=== PATIENT | male | born 1955 | race Caucasian/White ===

== ENCOUNTER 2021-11-21 11:46 | Emergency (ER) | payer OTHER, SELFPAY ==
--- NOTE | ~2021-11-21 | XR_ITS ---
[id number] DATE: 11/21/2021 12:18 INDICATION: Fall. Left mid rib pain. History of COPD. TECHNIQUE: PA chest. 4 views of the left ribs. COMPARISON: 03/10/2012 portable AP chest FINDINGS: There is diffuse osteopenia. There is old fracture deformity of the lateral shaft of left clavicle. There is mild degenerative laith nge at the left acromioclavicular joint. There is severe osteoarthritis at the left glenohumeral join t. There are degenerative changes of the cervical and thoracic spine. There is old healed fracture deformity of the posterolateral aspect of the left fifth rib. No recent left rib fracture is detected. Borderline heart size. Heart size is not optimally evaluated on AP projection because of magnificatio n. There is pulmonary vascular redistribution which may indicate mild pulmonary venous hypertension. Mild patchy infiltrate or atelectasis is suggested in both lower lungs. No pleural effusion or pneumo thorax is evident. IMPRESSION: No recent left rib fracture is detected Mild infiltrate or atelectasis is suggested in the lower lungs Borderline heart size. Pulmonary vascular redistribution suggests mild pulmonary venous hypertension. Reviewed, dictated and finalized at [facility]. Reviewed, dictated and finalized at location A. TICAL ANTHROPOLOGIST IMPRESSION: No recent left rib fracture is detected Mild infiltrate or atelectasis is suggested in the lower lungs Borderline heart size. Pulmonary vascular redistribution suggests mild pulmonar y venous hypertension.
--- NOTE | 2021-11-21 11:54 | ED.GENADULT ---
HPI - General Adult General Chief complaint: Chest Pain Stated complaint: Left side rib injury Time Seen by Provider: 11/21/21 11:54 Source: patient and RN notes reviewed History of Present Illness HPI narrative: Patient is a 66-year-old male who presents the urgent care with complaints of right-sided rib pain after a fall on November 12. Patient states he has been taking ibuprofen every 12 hours without any relief. Patient states that he has had chills and sweats from the pain. States that he did go to [facility] initially and he did have a negative x-ray. Patient states he is now having increased pain with deep breathing. Denies of any fevers. No other acute complaints. No acute distress noted. Patient read the plan of care. Some parts of this dictation were generated by voice recognition software and may contain typographical and/or grammatical inaccuracies. Related Data Home Medications Medication Instructions Recorded Confirmed cholecalciferol (vitamin D3) 1,250 1,250 mcg PO MONTHLY 08/10/20 11/21/21 mcg (50,000 unit) capsule vitamin B complex 1 tablet PO DAILY 08/10/20 11/21/21 methotrexate 2.5 mg/mL oral See Rx Instructions PO .COMPLEX 08/16/21 11/21/21 solution Allergies Allergy/AdvReac Type Severity Reaction Status Date / Time No Known Allergies Allergy Verified 11/21/21 11:59 Review of Systems Review of Systems: CONSTITUTIONAL: Denies fever, chills, or sweats. EYES: Denies visual changes, redness, or discharge. ENT: Denies rhinorrhea, congestion, sore throat, or otalgia. CARDIOVASCULAR: Denies chest pain, palpitations, or edema. RESPIRATORY: Reports of pain with deep breathing and intermittent dyspnea with anterior left rib pain GASTROINTESTINAL: Denies abdominal pain, nausea, vomiting, or diarrhea. GENITOURINARY: Denies dysuria or hematuria. SKIN: Denies rash or itching. MUSCULOSKELETAL: Denies back pain, joint pain, or myalgia. NEUROLOGIC: Denies headache, numbness, or weakness. All other systems reviewed are negative, except as documented in HPI. [facility] Past Medical History Medical History Pericardial effusion Surgical History Surgical History (Updated 08/16/21 @ 08:58 by Suzi Hendrickson CMA) History of bilateral knee replacement Family History Family History (Updated 02/09/18 @ 16:15 by DOCTOR UNKNOWN) Other Family history of cardiovascular disease Social History Social History Smoking status: Former smoker Smoking end date: 11/16/02 Alcohol intake: current Comments At the time of my signature, I reviewed and agree with the nursing past medical, surgical, social, and family history. There is no relevant family history pertinent to the patient complaint. Exam Narrative: GENERAL: This is a well-nourished, well-developed patient, in no apparent distress. HEAD: normocephalic, atraumatic. EYES: PERRL. Sclera clear/white. Vision is grossly intact. EARS: External ears normal NOSE: External nose normal with no obvious nasal discharge, nares without redness, no rhinorrhea. THROAT: Mucous membranes moist NECK: Neck supple CARDIOVASCULAR: Regular rate and rhythm without murmurs, gallops, or rubs. RESPIRATORY: Clear to auscultation. Diminished bibasilar SKIN: warm, intact with no suspicious lesions or rash, good texture and turgor. NEURO: awake, alert, and oriented to person, place and time. There were no obvious focal neurologic abnormalities. EXTREMITIES: No clubbing, cyanosis, or edema. Course Course Level of Care: Express Care Visit Vital Signs Vital signs: Vital Signs Temperature 98.1 F 11/21/21 12:02 Pulse Rate 82 11/21/21 12:02 Respiratory Rate 20 11/21/21 12:02 Blood Pressure 160/84 H 11/21/21 12:02 Pulse Oximetry 96 11/21/21 12:02 Temperature 98.1 F 11/21/21 12:02 Pulse Rate 82 11/21/21 12:02 Respiratory Rate 20 11/21/21 12:02 Blood Pressure 160/84 H 01/0
[2021-11-21 12:02] VITALS: BP 160/84; PULSE 82; RESP 20; TEMP 36.7; O2SAT 96
== END 2021-11-21 12:43 | disposition home or self-care (01) ==
PROVIDERS: Emergency Provider Nurse Practitioner Family; PCP Family Medicine
DX: R91.8 Other nonspecific abnormal finding of lung field (principal); Z96.653 Presence of artificial knee joint, bilateral; Z86.711 Personal history of pulmonary embolism; Z87.891 Personal history of nicotine dependence
CPT/HCPCS: 71101; 99213; G0463

== ENCOUNTER 2023-07-23 12:30 | Outpatient (CLI) | payer MEDICARE, OTHER, SELFPAY ==
[2023-07-23 18:38] LABS: Basophils Absolute Auto 0.1 K/mm3 (0.0-0.1); Eosinophils Absolute Auto 0.4 K/mm3 (0-0.3); Hematocrit 42.9 % (42.0-52.0); Hemoglobin 13.5 g/dL (14.0-18.0); Immature Granulocyte Absolute 0.01 K/mm3 (0.00-0.031); Immature Granulocyte Percent A 0.2 % (0-0.5); Lymphocytes Absolute Auto 1.66 K/mm3 (0.9-3.2); Lymphocytes Percent Auto 27.2 % (18.3-44.2); Mean Corpuscular HGB Conc 31.5 g/dl (32-36); Mean Corpuscular Hemoglobin 31.1 pg (26-34); Mean Corpuscular Volume 98.8 fl (80-100); Mean Platelet Volume 10.9 fl (7.4-10.4); Monocytes Absolute Auto 0.8 K/mm3 (0.1-0.6); Monocytes Percent Auto 12.6 % (2.6-8.5); Neutrophils Absolute Auto 3.2 K/mm3 (1.3-6.7); Platelet Count Result 295 k/mm3 (150-375); Red Blood Count 4.34 M/mm3 (4.6-6.20); Red Cell Distribution Width 14.9 % (11.5-14.5); White Blood Count 6.1 K/mm3 (4.5-10.0)
[2023-07-23 19:57] LABS: LDL Cholesterol Direct 79 mg/dL
[2023-07-23 20:06] LABS: Alanine Aminotransferase 38 U/L (6-50); Alkaline Phosphatase 209 U/L (38-126); Aspartate Amino Transferase 45 U/L (17-59); Blood Urea Nitrogen 17 mg/dL (9-20); Calcium 9.4 mg/dL (8.4-10.2); Carbon Dioxide 34 mmol/L (22-30); Cholesterol 179 mg/dL (0-200); Estimated Glomerular Filt Rate > 60; Glucose 96 mg/dL (65-110); HDL Direct 54 mg/dL; Potassium 4.6 mmol/L (3.4-5.0); Prostate Specific Antigen 0.8 ng/mL (< OR = 4.0); Sodium 140 mmol/L (137-145); Triglycerides 93 mg/dL (<150)
[2023-07-23 20:23] LABS: Vitamin D 25 Hydroxy 24.7 ng/mL
[2023-07-23 21:12] LABS: Hemoglobin A1C 5.7 % (<5.7)
[2023-07-23 21:32] LABS: Anion Gap 4 mmol/L (8-16); Chloride 102 mmol/L (98-107)
== END 2023-07-23 12:31 | disposition home or self-care (01) ==
PROVIDERS: PCP Family Medicine; Visit Provider Family Medicine
DX: E78.5 Hyperlipidemia, unspecified (principal); E55.9 Vitamin D deficiency, unspecified; R73.9 Hyperglycemia, unspecified; M06.9 Rheumatoid arthritis, unspecified; I10 Essential (primary) hypertension; Z79.899 Other long term (current) drug therapy; E53.8 Deficiency of other specified B group vitamins; Z12.5 Encounter for screening for malignant neoplasm of prostate
CPT/HCPCS: 36415; 80053; 80061; 82306; 82607; 83036; 84153; 84443; 85025; G0103

== ENCOUNTER 2023-07-23 15:03 | Inpatient (IN) | payer MEDICARE, OTHER, SELFPAY ==
[2023-07-23] VITALS (25 sets, daily range): BP systolic 106–169; BP diastolic 51–101; PULSE 80–95; RESP 14–24; TEMP 36.6–36.8; O2SAT 89–95; BMI 55.4
--- NOTE | ~2023-07-23 | CT_ITS ---
EXAMINATION: CT abdomen pelvis wo con DATE: 07/25/2023 08:34 INDICATION: R Testicular swelling, unable to view on US TECHNIQUE: Computed tomography (CT) of the abdomen and pelvis was performed without intravenous contr ast. Automated exposure control and iterative reconstruction technique were employed. The dose-length product was 2712.48 mGy-cm. COMPARISON: None. FINDINGS: Lower thorax: Cardiomegaly. Aortic and mitral calcification. Liver: Normal. Biliary/Gallbladder: Gallbladder is normal. No bile duct dilation. Pancreas: No mass or duct dilation. Spleen: Absent spleen, with splenosis. Adrenals:No mass. Kidneys: No mass, stone, or hydronephrosis. GI tract: The rectum is dilated to 9.0 cm by formed stool, without surrounding wall thickening or inf lammatory change No small bowel dilation. Appendix not visualized. Mesentery/Peritoneum: No ascites, mass, or free air. Retroperitoneum: No mass. Pelvis: Mild wall thickening in a distended urinary bladder. Soft Tissues: Large bilateral uncomplicated fat-containing inguinal hernias that extend into and dist ends the scrotum. Scrotal wall thickening. Bones: No acute osseous finding. IMPRESSION: Large uncomplicated bilateral fat-containing inguinal hernias which may account for the described deniz ticular swelling. Scrotal wall thickening may be secondary to cellulitis or edema, correlate clinically. Fecal impaction. Reviewed, dictated and finalized at location [facility]. IMPRESSION: Large uncomplicated bilateral fat-containing inguinal hernias which may account for the described testicular swelling. Scrotal wall thickening may be secondary to cellulitis or edema, correlate clin ically. Fecal impaction.
--- NOTE | ~2023-07-23 | XR_ITS ---
XR knee RT 3V DATE: 07/25/2023 08:24 INDICATION: Fall. Unable to straighten leg. Generalized pain. TECHNIQUE: 3 views including crosstable lateral COMPARISON: None FINDINGS: Status post right total knee arthroplasty with patellar resurfacing. Joint effusion. No right knee fracture or dislocation is detected. No periosteal reaction or bone destruction. IMPRESSION: Right knee joint effusion Status post right total knee arthroplasty Reviewed, dictated and finalized at location [facility].
--- NOTE | ~2023-07-23 | XR_ITS ---
EXAMINATION: XR chest 1V portable INDICATION: Weakness TECHNIQUE: Portable AP chest at 1530 hours COMPARISON: 11/21/2021 FINDINGS: There are diffuse opacities throughout all lung zones. No pleural effusion or pneumothorax. The heart size is upper limits of normal for technique. There is advanced osteoarthritis of the left glenohumeral joint. IMPRESSION: 1. Diffuse lung disease which could reflect atelectasis versus pneumonia versus pulmonary edema. Reviewed, dictated and finalized at location L.
--- NOTE | ~2023-07-23 | US_ITS ---
EXAMINATION: US scrotum doppler DATE: 07/24/2023 10:25 INDICATION: Testicular and scrotal swelling. TECHNIQUE: Grayscale and Doppler ultrasound images of the testes were obtained. COMPARISON: CT abdomen and pelvis 03/01/2012 FINDINGS: The right testis is not visualized. The left testis measures 4.5 x 2.4 x 3.4 cm. There is n ormal vascular flow in left testis. The right epididymis is not visualized. The left epididymis is no rmal with normal vascular flow. There is a small left hydrocele. There is a left varicocele. IMPRESSION: 1. Right testis and right epididymis not visualized. Morbid obesity decreases sensitivity. 2. Small left hydrocele. 3. Left-sided varicocele. Reviewed, dictated and finalized at location [facility].
--- NOTE | ~2023-07-23 | US_ITS ---
EXAMINATION: US arterial ankle brachial ind DATE: 07/24/2023 10:26 INDICATION: Lower limb ulcer. TECHNIQUE: Segmental pressures and plethysmographic and Doppler waveforms of the brachial and lower e xtremity arteries were obtained. COMPARISON: None. FINDINGS: Right and left brachial artery pressures of 156 mm Hg and 146 mm Hg, respectively, are concordant (no rmal difference <= 30 mmHg). The right ankle-brachial index (ROBERT) could not be measured due to inability to cuff occlude the arter ies (normal >= 0.9-1.0). The right great toe-brachial index (TBI) is 0.53 (normal >= 0.65). Arterial Doppler waveforms are at least triphasic in posterior tibial artery and biphasic in dorsalis pedis. The left ROBERT could not be measured due to inability to cuff occlude the arteries. The left TBI is 0.7 4. Arterial Doppler waveforms are at least triphasic in posterior tibial artery and biphasic in dorsa lis pedis. IMPRESSION: 1. Mildly decreased right TBI, normal left TBI, and normal ABIs, consistent with arterial occlusive d isease. Reviewed, dictated and finalized at location A. IMPRESSION: 1. Mildly decreased right TBI, normal left TBI, and normal ABIs, consistent wit h arterial occlusive disease.
--- NOTE | ~2023-07-23 | XR_ITS ---
XR femur RT min 2V DATE: 07/25/2023 08:24 INDICATION: Fall. Unable to straighten leg. Pain. TECHNIQUE: AP and crosstable lateral views of right femur COMPARISON: January 13, 2017 right knee FINDINGS: Status post right total knee arthroplasty with patellar resurfacing. Severe right hip osteoarthritis with virtual obliteration of right hip joint space, degenerative spur ring. Due to body habitus, bone detail is limited at the right hip area. No apparent right femoral fracture or dislocation is noted. IMPRESSION: Limited detail of proximal right femur due to body habitus Severe right hip osteoarthritis Status post right total knee arthroplasty Reviewed, dictated and finalized at location A.
--- NOTE | ~2023-07-23 | CT_ITS ---
CT OF right knee EXAMINATION: CT knee RT wo con DATE: 07/25/2023 14:50 INDICATION: Fall, knee pain TECHNIQUE: Computed tomography (CT) of the right knee was performed without intravenous contrast. Aut omated exposure control and iterative reconstruction technique were employed. The dose-length product was 525.22 mGy-cm. COMPARISON: X-ray right knee and right femur, same date FINDINGS: Right knee total arthroplasty. No hardware fracture. No perihardware lucency. Normal mineralization. No osseous fracture or dislocation. No periosteal change. No lytic or blastic lesion. Subcutaneous ed gus. Subcutaneous varicosities. IMPRESSION: No acute osseous finding in the right knee. No CT evidence of hardware-related complication. Reviewed, dictated and finalized at location K.
--- NOTE | ~2023-07-23 | US_ITS ---
EXAMINATION: US venous doppler [facility] DATE: 07/25/2023 19:40 INDICATION: r/o DVT, swelling . TECHNIQUE: Grayscale images without and with compression and Doppler images of the bilateral lower ex tremity veins were obtained. COMPARISON: None FINDINGS: The right common femoral vein, profunda (deep) femoral vein, femoral vein, popliteal vein, peroneal v ein, posterior tibial veins, gastrocnemius vein, and greater saphenous vein are patent. The left common femoral vein, profunda (deep) femoral vein, femoral vein, popliteal vein, peroneal v ein, posterior tibial veins, gastrocnemius vein, and greater saphenous vein are patent. IMPRESSION: Patent bilateral lower extremity veins. No evidence of deep venous thrombosis. Reviewed, dictated and finalized at location K.
--- NOTE | 2023-07-23 15:14 | ECG_ITS ---
Measurements Intervals [place] Rate: 85 P: 77 WV: 184 QRS: 27 QRSD: 109 T: 42 QT: 351 QTc: 418 Interpretive Statements SINUS RHYTHM BASELINE ARTIFACT- I, II, III, AVR, V1-V2 NORMAL ECG NO PREVIOUS ECG AVAILABLE FOR COMPARISON Electronically Signed On 07-23-2023 15:30:09 CDT by John Doshi D.O.
[2023-07-23 15:32] LABS: Basophils Absolute Auto 0.1 K/mm3 (0.0-0.1); Eosinophils Absolute Auto 0.4 K/mm3 (0-0.3); Hematocrit 44.1 % (42.0-52.0); Lymphocytes Absolute Auto 1.85 K/mm3 (0.9-3.2); Lymphocytes Percent Auto 32.2 % (18.3-44.2); Mean Corpuscular HGB Conc 31.7 g/dl (32-36); Mean Corpuscular Hemoglobin 31.5 pg (26-34); Mean Corpuscular Volume 99.3 fl (80-100); Mean Platelet Volume 10.2 fl (7.4-10.4); Monocytes Absolute Auto 0.7 K/mm3 (0.1-0.6); Monocytes Percent Auto 12.3 % (2.6-8.5); Neutrophils Absolute Auto 2.7 K/mm3 (1.3-6.7); Neutrophils Percent Auto 47.5 % (45.5-73.1); Platelet Count Result 303 k/mm3 (150-375); Red Blood Count 4.44 M/mm3 (4.6-6.20); Red Cell Distribution Width 15.1 % (11.5-14.5); White Blood Count 5.8 K/mm3 (4.5-10.0)
[2023-07-23 15:46] LABS: Alanine Aminotransferase 38 U/L (6-50); Albumin Level 4.2 g/dL (3.5-5.1); Alkaline Phosphatase 205 U/L (38-126); Anion Gap 4 mmol/L (8-16); Aspartate Amino Transferase 49 U/L (17-59); Bilirubin,Total 1.1 mg/dL (0.2-1.3); Blood Urea Nitrogen 17 mg/dL (9-20); Calcium 9.4 mg/dL (8.4-10.2); Carbon Dioxide 32 mmol/L (22-30); Chloride 103 mmol/L (98-107); Estimated CRCL calculation 144 ml/min; Estimated Glomerular Filt Rate > 60; Glucose 98 mg/dL (65-110); Potassium 4.8 mmol/L (3.4-5.0); Sodium 139 mmol/L (137-145)
--- NOTE | 2023-07-23 15:48 | ED.WEAKNESS ---
HPI - Weakness General Chief complaint: Weakness Stated complaint: weakness Time Seen by Provider: 07/23/23 15:47 History of Present Illness HPI Narrative: Patient is a 67-year-old male with history of RA, morbid obesity here with generalized weakness. Patient has been slowly declining over many months and has been having some difficulty ambulating around the home. He has a walker and helps him around the house. He has had multiple falls in the last week including today. today Rosario brought patient to the primary care doctor's office with a ride service. They discussed these concerns with primary doctor who referred to home health, PT, OT. They note that this could take 7-10 days for them to contact them. They rode home with the car service an attempt to get patient out of the vehicle with multiple assist patient got pinned with thin the van and was unable to be helped out. EMS had to be called to help with lifting. At this point had patient brought into the emergency department due to concerns for safety at home. She states she is unable to help around the house and is concerned for both her and his safety should he fall. She does not feel like she can wait 7-10 days to get home health coordinated. Patient denies any new aches or pains. He is currently states that his right knee hurts but this has been bugging him for quite some time. He denies any injuries today. Related Data Home Medications Medication Instructions Recorded Confirmed vitamin B complex (B 1 tablet PO DAILY 08/10/20 07/23/23 Complex-Vitamin B12 tablet) ergocalciferol (vitamin D2) 1,250 1,250 mcg PO MONTHLY 08/15/22 07/23/23 mcg (50,000 unit) capsule (Vitamin D2) hydroxychloroquine 200 mg tablet 200 mg PO BID 08/15/22 07/23/23 zinc acetate 50 mg (zinc) capsule 50 mg PO DAILY 08/15/22 07/23/23 (Galzin) methotrexate sodium 2.5 mg tablet 22.5 mg PO WEEKLY 07/23/23 07/23/23 Allergies Allergy/AdvReac Type Severity Reaction Status Date / Time No Known Allergies Allergy Verified 07/23/23 10:01 Review of Systems Review of Systems: CONSTITUTIONAL: Denies fever, chills, or sweats. EYES: Denies visual changes, redness, or discharge. ENT: Denies rhinorrhea, congestion, sore throat, or otalgia. CARDIOVASCULAR: Denies chest pain, palpitations, or edema. RESPIRATORY: Denies cough or dyspnea. GASTROINTESTINAL: Denies abdominal pain, nausea, vomiting, or diarrhea. GENITOURINARY: Denies dysuria or hematuria. SKIN: Chronic skin color changes in bilateral lower legs MUSCULOSKELETAL: chronic back pain, chronic bilateral knee pain NEUROLOGIC: Generalized weakness. Denies headache, or numbness. [facility] Past Medical History Medical History Impaired mobility and ADLs Lymphedema of both lower extremities Obstructive sleep apnea syndrome Overactive bladder Pericardial effusion Rheumatoid arthritis Systemic lupus Surgical History Surgical History History of bilateral knee replacement Family History Family History Other Family history of cardiovascular disease Social History Social History Smoking packs per day: 1 Smoking cigarettes per day: 20.0 Years smoked: 30 Smoking pack-years: 30.00 Smoking status: Former smoker Smoking end date: 11/16/02 Alcohol intake: current Substance use: never Substance use type: does not use Lack of Transportation: No Lack of Food: Never True Current Housing: I Have Housing Concerned About Future Housing: No Difficulty Paying Gas/Electric Bills: No Difficulty Paying for Meds: No Currently Unemployed: No Education: High School Diploma/GED Difficulty w/ Childcare or Family Care: No Living arrangements: with family Occupation/Education: retired
--- NOTE | 2023-07-23 17:10 | PCCCNOTE ---
Call received from ED requesting CC speak with pt and spouse about placement. Pt currently lives in his home with his spouse. He has a walker and requires assistance with all ADLs. He has fallen at home x2 this week and required EMS to help him get up due to increasing weakness and swelling of LE. Pt saw his PCP today and was given referral for nursing and therapy with [facility]. Spouse unable to manage pt at home due to his increasing weakness. Pt and spouse informed of their options. He has Medicare and a supplement. Medicare will only pay for rehab for a short time if it is medically necessary for him to be admitted as an inpatient and not observation. They would have to pay out of pocket if his PCP admitted him directly from the office, which they were unaware of. There is also private duty available for hours between visits from nursing/therapy which would also come out of pocket. THey were informed that Medicare only pays for skilled rehab and doesn't pay for penitentiary care. THey were given a list of facilities in the area and, in order of preference, they would choose [facility] and then [facility] in [place], if he were to go to rehab. They were informed that after Medicare benefit is depleted and he wanted to stay, he would have to pay for the facility out of pocket with the possibility of Medicaid if he qualified. ED provider informed of assessment, and she will be assessing pt for necessity of admission when testing completed. Following
[2023-07-23 17:14] LABS: Appearance Urine Clear (Clear); Bilirubin Urine Negative (Negative); Blood Urine Negative (Negative); Color Urine Yellow (Yellow); Glucose Urine UA Negative (Negative); Ketones Urine Negative (Negative); Leukocyte Esterase Ur Negative LEU/UL (Negative); Nitrate Urine Negative (Negative); Protein Urine Negative (Negative); Specific Grav Ur 1.021 (1.001-1.035); pH Urine 6.5 (5.0-9.0)
[2023-07-23 17:16] LABS: Add Urine Microscopic? NO
--- NOTE | 2023-07-23 19:04 | PC.NURSE ---
Patient report given to PAWAN Jean. All questions answered and care of patient transferred.
--- NOTE | 2023-07-24 00:45 | PM.IMHP ---
H&P: HPI History of Present Illness Date/Time: 07/24/23 00:45 Chief Complaint: Multiple Falls Narrative: 67 y/o M with PMH of rheumatoid arthritis, LEW, and morbid obesity presents here due to multiple falls and reduction in mobility. Patient reports multiple falls in the last week, mechanical in nature with most recent being today. Patient was utilizing a ride service to attend an appointment when he fell attempting to get out of his seat with a multi-person assist to exit the van. He became wedged against seat and EMS was called for lift assist. Due to event, increasingly concerned about patient's safety at home. Currently trying to coordinate home health, wait time is 7-10 days and she feels this places the patient at risk if he were to fall again. Patient reports no injuries from fall and did not lose consciousness. Current pain is chronic in nature, primarily in right hip and right knee. Patient also reports chronic bilateral lower extremity skin infection causing area to be discolored, blisters present. Present for 1+ year, unclear onset. States he has not been seen for this issue and no treatments or imaging have been completed. Patient also reports testicle swelling on the right. Unclear when swelling began per patient, causing some difficulty with urination, and tender to the touch. Review of Systems Review of Systems: All systems reviewed & are unremarkable except as noted in HPI and below PMFSH Past Medical History Medical History Impaired mobility and ADLs Lymphedema of both lower extremities Obstructive sleep apnea syndrome Overactive bladder Pericardial effusion Rheumatoid arthritis Systemic lupus Surgical History Surgical History (Updated 07/24/23 @ 01:18 by Deisy العلي APRN) History of bilateral knee replacement History of splenectomy Family History Family History Other Family history of cardiovascular disease Social History Social History (Updated 07/24/23 @ 01:19 by Deisy العلي APRN) Social History: Currently lives at home with . Retired. Full Code. Smoking packs per day: 1 Smoking cigarettes per day: 20.0 Years smoked: 25 Smoking pack-years: 25.00 Smoking status: Former smoker Tobacco type: cigarettes Smoking end date: 11/16/02 Alcohol intake: former Drinks per week: 14 Substance use: never Substance use type: does not use Lack of Transportation: No Lack of Food: Never True Current Housing: I Have Housing Concerned About Future Housing: No Difficulty Paying Gas/Electric Bills: No Difficulty Paying for Meds: No Currently Unemployed: No Education: High School Diploma/GED Difficulty w/ Childcare or Family Care: No Living arrangements: with family Occupation/Education: retired Gender identity (if verbalized by the patient): Male Sexual Orientation (if Verbalized by the Patient): Straight or Heterosexual Spiritual care concerns: No Agree to blood products: Yes Meds Home Medications and Allergies Home Medications Medication Instructions Recorded Confirmed Type folic acid 1 mg tablet 1 mg PO DAILY #90 tabs 02/07/20 07/23/23 Rx vitamin B complex (B 1 tablet PO DAILY 08/10/20 07/23/23 History Complex-Vitamin B12 tablet) ergocalciferol (vitamin D2) 1,250 1,250 mcg PO MONTHLY 08/15/22 07/23/23 History mcg (50,000 unit) capsule (Vitamin D2) hydroxychloroquine 200 mg tablet 200 mg PO BID 08/15/22 07/23/23 History zinc acetate 50 mg (zinc) capsule 50 mg PO DAILY 08/15/22 07/23/23 History (Galzin) methotrexate sodium 2.5 mg tablet 22.5 mg PO WEEKLY 07/23/23 07/23/23 History oxybutynin chloride 10 mg 10 mg PO DAILY #90 tabs 07/23/23 07/23/23 Rx tablet,extended release 24 hr Allergies Allergy/AdvReac Type Severity Reaction Status Date / Time No Known Allergies Allergy Verified
[2023-07-24 05:33] VITALS: BP 129/62; PULSE 62; RESP 13; TEMP 36.1; O2SAT 96
--- NOTE | 2023-07-24 06:51 | PM.IMPN ---
Progress Note: A&P Assessment and Plan (1) Impaired mobility and ADLs: Code(s): Z74.09 - Other reduced mobility; Z78.9 - Other specified health status Status: Acute Assessment and Plan: Currently lives at home with his . Safety concern due to multiple falls, requesting placement or rehab. -PT to eval and treat -OT to eval and treat -Care coordination consulted in ED and has touched base with pt/family (2) Recurrent falls: Code(s): R29.6 - Repeated falls Status: Acute Assessment and Plan: See plan for impaired ADLS -fall precautions in place -activity as tolerated with PT/OT (3) Scrotal swelling: Code(s): N50.89 - Other specified disorders of the male genital organs Status: Acute Assessment and Plan: Unknown onset. +Tenderness and erythema. Testicle on R significantly more swollen than L. Causing difficulty with urination. -UA: unremarkable -continue home oxybutynin -Scrotal US -Tyl PRN for discomfort (4) Lower extremity edema: Code(s): R60.0 - Localized edema Status: Acute Assessment and Plan: Chronic discoloration of LE, swelling and blistering. Present for over 1 year, no treatment or imaging of LE completed prior per patient's verbal history. Attempts to wear compression stockings. -ROBERT, mildly decreased right TBI, normal left TBI, and normal ABIs, consistent with arterial occlusive disease. Plan Chronic Conditions -LEW: Home BiPAP/CPAP continued. -RA: hydroxychloroquine, methotrexate, and folic acid continued. -Supplements: continue home vitamin B, zinc, and vitamin D. Diet: Heart Healthy Diet DVT Prophylaxis: Lovenox 40 Code Status: Full Code, (Mindi Nolasco) to be surrogate decision maker Analgesia:Tylenol Glycemic control: N/A, blood gulcose on BMP 98, no hx Bowel regimen: Last BM Lines: PIV Antibiotics: N/A Subjective Date/time seen: 07/24/23 06:51 Interval history: HPI obtained from chart, 67 y/o M with PMH of rheumatoid arthritis, LEW, and morbid obesity presents here due to multiple falls and reduction in mobility. Patient reports multiple falls in the last week, mechanical in nature with most recent being today.? Patient was utilizing a ride service to attend an appointment when he fell attempting to get out of his seat with a multi-person assist to exit the van.? He became wedged against seat and EMS was called for lift assist.? Due to event, increasingly concerned about patient's safety at home.? Currently trying to coordinate home health, wait time is 7-10 days and she feels this places the patient at risk if he were to fall again.? Patient reports no injuries from fall and did not lose consciousness.? Current pain is chronic in nature, primarily in right hip and right knee.? Patient also reports chronic bilateral lower extremity skin infection causing area to be discolored, blisters present. Present for 1+ year, unclear onset. States he has not been seen for this issue and no treatments or imaging have been completed.? Patient also reports testicle swelling on the right.? Unclear when swelling began per patient, causing some difficulty with urination, and tender to the touch. 07/24: Spoke with patient and his at the bedside today. Apparently he retired in November and since then he has not been very mobile at home and thus has decreased muscle weakness and mobility. He has fallen twice now within the last week, once in the shower and once in the transport van. His is unable to care for him at home given his weakness and size. She is unable to help him off the toilet and he is unable to shower safely. He has bilateral lower extremity discolorations from chronic venous insufficiency but no real concerns for edema. He does have a small abrasion to his right ruby from his recent fall. He states his legs have appeared like this for years and has also had scrotal swelling for years. Will await
[2023-07-24 07:59] LABS: Basophils Absolute Auto 0.1 K/mm3 (0.0-0.1); Basophils Percent Auto 0.9 % (0.2-1.2); Eosinophils Absolute Auto 0.5 K/mm3 (0-0.3); Eosinophils Percent Auto 8.7 % (0-4.4); Hematocrit 40.4 % (42.0-52.0); Hemoglobin 12.8 g/dL (14.0-18.0); Immature Granulocyte Absolute 0.01 K/mm3 (0.00-0.031); Immature Granulocyte Percent A 0.2 % (0-0.5); Lymphocytes Absolute Auto 1.68 K/mm3 (0.9-3.2); Lymphocytes Percent Auto 29.8 % (18.3-44.2); Mean Corpuscular HGB Conc 31.7 g/dl (32-36); Mean Corpuscular Hemoglobin 31.4 pg (26-34); Mean Corpuscular Volume 99.3 fl (80-100); Mean Platelet Volume 10.1 fl (7.4-10.4); Monocytes Absolute Auto 0.8 K/mm3 (0.1-0.6); Monocytes Percent Auto 13.9 % (2.6-8.5); Neutrophils Absolute Auto 2.6 K/mm3 (1.3-6.7); Neutrophils Percent Auto 46.5 % (45.5-73.1); Platelet Count Result 268 k/mm3 (150-375); Red Blood Count 4.07 M/mm3 (4.6-6.20); Red Cell Distribution Width 14.8 % (11.5-14.5); White Blood Count 5.6 K/mm3 (4.5-10.0)
[2023-07-24 08:08] LABS: Alanine Aminotransferase 33 U/L (6-50); Albumin Level 3.4 g/dL (3.5-5.1); Alkaline Phosphatase 177 U/L (38-126); Anion Gap 4 mmol/L (8-16); Aspartate Amino Transferase 39 U/L (17-59); Blood Urea Nitrogen 15 mg/dL (9-20); Calcium 8.8 mg/dL (8.4-10.2); Carbon Dioxide 33 mmol/L (22-30); Chloride 101 mmol/L (98-107); Estimated CRCL calculation 130 ml/min; Estimated Glomerular Filt Rate > 60; Glucose 96 mg/dL (65-110); Potassium 4.4 mmol/L (3.4-5.0); Sodium 138 mmol/L (137-145)
[2023-07-24] MEDS: oxyBUTYnin CHLORIDE XL 5 MG TAB.ER.24 10 MG PO (10:23)
[2023-07-24] MEDS: HYDROXYCHLOROQUINE SULFATE 200 MG TABLET PO ×2 (10:23→17:42)
[2023-07-24] MEDS: VITAMIN B COMPLEX CAPSULE 1 CAP PO (10:23)
[2023-07-24] MEDS: ZINC SULFATE 220 MG CAPSULE PO (10:23)
[2023-07-24] MEDS: FOLIC ACID 1 MG TABLET PO (10:23)
[2023-07-24] MEDS: ENOXAPARIN 40 MG/0.4 ML SYRINGE SUB-Q (10:24)
[2023-07-24 14:00] VITALS: BP 143/79; PULSE 73; RESP 20; TEMP 36.1; O2SAT 97
[2023-07-24] MEDS: ACETAMINOPHEN 325 MG TABLET 650 MG PO (15:24)
[2023-07-24 22:00] VITALS: BP 106/58; PULSE 71; RESP 18; TEMP 36.1; O2SAT 96
[2023-07-24 22:25] VITALS: RESP 24; O2SAT 95
[2023-07-25 02:25] VITALS: RESP 15
[2023-07-25 05:44] VITALS: BP 118/70; PULSE 51; RESP 16; TEMP 35.9; O2SAT 95
[2023-07-25 06:20] LABS: Basophils Absolute Auto 0.1 K/mm3 (0.0-0.1); Basophils Percent Auto 1.2 % (0.2-1.2); Eosinophils Absolute Auto 0.6 K/mm3 (0-0.3); Eosinophils Percent Auto 9.1 % (0-4.4); Hematocrit 40.3 % (42.0-52.0); Hemoglobin 13.1 g/dL (14.0-18.0); Immature Granulocyte Absolute 0.02 K/mm3 (0.00-0.031); Immature Granulocyte Percent A 0.3 % (0-0.5); Lymphocytes Absolute Auto 1.87 K/mm3 (0.9-3.2); Lymphocytes Percent Auto 31.1 % (18.3-44.2); Mean Corpuscular HGB Conc 32.5 g/dl (32-36); Mean Corpuscular Volume 98.3 fl (80-100); Mean Platelet Volume 10.2 fl (7.4-10.4); Monocytes Absolute Auto 0.8 K/mm3 (0.1-0.6); Monocytes Percent Auto 13.3 % (2.6-8.5); Neutrophils Absolute Auto 2.7 K/mm3 (1.3-6.7); Platelet Count Result 272 k/mm3 (150-375); Red Cell Distribution Width 14.8 % (11.5-14.5)
[2023-07-25 06:35] LABS: Alanine Aminotransferase 30 U/L (6-50); Albumin Level 3.5 g/dL (3.5-5.1); Alkaline Phosphatase 175 U/L (38-126); Anion Gap 6 mmol/L (8-16); Aspartate Amino Transferase 33 U/L (17-59); Bilirubin,Total 0.8 mg/dL (0.2-1.3); Blood Urea Nitrogen 15 mg/dL (9-20); Calcium 8.9 mg/dL (8.4-10.2); Carbon Dioxide 30 mmol/L (22-30); Chloride 101 mmol/L (98-107); Estimated CRCL calculation 130 ml/min; Estimated Glomerular Filt Rate > 60; Glucose 99 mg/dL (65-110); Potassium 4.2 mmol/L (3.4-5.0); Sodium 137 mmol/L (137-145)
--- NOTE | 2023-07-25 07:34 | PM.IMPN ---
Progress Note: A&P Assessment and Plan (1) Impaired mobility and ADLs: Code(s): Z74.09 - Other reduced mobility; Z78.9 - Other specified health status Status: Acute Assessment and Plan: Currently lives at home with his . Safety concern due to multiple falls due to joint pain and weakness from attributed to his RA and OA. He is unable to move around his home safely and complete ADLs without assistance. -PT to eval and treat -OT to eval and treat -Care coordination consulted in ED and has touched base with pt/family (2) Recurrent falls: Code(s): R29.6 - Repeated falls Status: Acute Assessment and Plan: See plan for impaired ADLS -fall precautions in place -XR right hip and R knee pain: XR right knee, IMPRESSION: Right knee joint effusion Status post right total knee arthroplasty? XR right femur, IMPRESSION: Limited detail of proximal right femur due to body habitus Severe right hip osteoarthritis Status post right total knee arthroplasty? -activity as tolerated with PT/OT. -Currently recommending acute rehab. (3) Scrotal swelling: Code(s): N50.89 - Other specified disorders of the male genital organs Status: Acute Assessment and Plan: Unknown onset. +Tenderness and erythema. Testicle on R significantly more swollen than L. Causing difficulty with urination. -UA: unremarkable -continue home oxybutynin -Scrotal US; left testis normal, right testis and epididymidis is not visualized. -Add on CT abdomen and pelvis to further investigate testicular swelling -Tylenol PRN for discomfort (4) Lower extremity edema: Code(s): R60.0 - Localized edema Status: Acute Assessment and Plan: Chronic discoloration of LE, swelling and blistering. Present for over 1 year, no treatment or imaging of LE completed prior per patient's verbal history. Attempts to wear compression stockings. -Chronic venous insufficiency with lymphedema. -Obtain venous Doppler for DVT rule out -Today swelling is trace to 1+. Will give a 1 x dose of lasix, recommend elevating legs when up in chair, apply DOMINIQUE wraps to help with venous return. -ROBERT, mildly decreased right TBI, normal left TBI, and normal ROBERT's, consistent with arterial occlusive disease. Plan Chronic Conditions -LEW: Home BiPAP/CPAP continued. -RA: hydroxychloroquine, methotrexate, and folic acid continued. -Supplements: continue home vitamin B, zinc, and vitamin D. Diet: Heart Healthy Diet DVT Prophylaxis: Lovenox 40 Code Status: Full Code, (Mindi Nolasco) to be surrogate decision maker Analgesia:Tylenol Glycemic control: N/A, blood glucose on BMP 98, no hx Bowel regimen: Last BM Lines: PIV Antibiotics: N/A Subjective Date/time seen: 07/25/23 07:34 Interval history: HPI obtained from chart, 67 y/o M with PMH of rheumatoid arthritis, Lupus, LEW, chronic venous insufficiency with lymphedema and morbid obesity presents here due to multiple falls and reduction in mobility. Patient reports multiple falls in the last week, mechanical in nature with most recent being today.? Patient was utilizing a ride service to attend an appointment when he fell attempting to get out of his seat with a multi-person assist to exit the van.? He became wedged against seat and EMS was called for lift assist.? Due to event, increasingly concerned about patient's safety at home.? Currently trying to coordinate home health, wait time is 7-10 days and she feels this places the patient at risk if he were to fall again.? Patient reports no injuries from fall and did not lose consciousness.? Current pain is chronic in nature, primarily in right hip and right knee.? Patient also reports chronic bilateral lower extremity skin infection causing area to be discolored, blisters present. Present for 1+ year, unclear onset. States he has not been seen for this issue and no treatments or imaging have been completed.? P
[2023-07-25] MEDS: ENOXAPARIN 40 MG/0.4 ML SYRINGE SUB-Q (08:43)
[2023-07-25] MEDS: ZINC SULFATE 220 MG CAPSULE PO (08:44)
[2023-07-25] MEDS: VITAMIN B COMPLEX CAPSULE 1 CAP PO (08:44)
[2023-07-25] MEDS: oxyBUTYnin CHLORIDE XL 5 MG TAB.ER.24 10 MG PO (08:44)
[2023-07-25] MEDS: HYDROXYCHLOROQUINE SULFATE 200 MG TABLET PO ×2 (08:44→17:25)
[2023-07-25] MEDS: FOLIC ACID 1 MG TABLET PO (09:47)
[2023-07-25] MEDS: FUROSEMIDE INJ 40 MG/4 ML VIAL IV PUSH (13:34)
[2023-07-25 14:00] VITALS: BP 107/59; PULSE 71; RESP 14; TEMP 37; O2SAT 95
[2023-07-25 22:00] VITALS: BP 118/63; PULSE 73; RESP 22; TEMP 35.9; O2SAT 96
[2023-07-25 22:35] VITALS: PULSE 73; RESP 21; O2SAT 96
[2023-07-26 06:00] VITALS: BP 124/79; PULSE 61; RESP 22; TEMP 36.3; O2SAT 99
[2023-07-26 06:06] LABS: Basophils Absolute Auto 0.1 K/mm3 (0.0-0.1); Basophils Percent Auto 0.9 % (0.2-1.2); Eosinophils Absolute Auto 0.6 K/mm3 (0-0.3); Eosinophils Percent Auto 9.4 % (0-4.4); Hematocrit 41.1 % (42.0-52.0); Hemoglobin 13.1 g/dL (14.0-18.0); Immature Granulocyte Absolute 0.01 K/mm3 (0.00-0.031); Immature Granulocyte Percent A 0.1 % (0-0.5); Lymphocytes Absolute Auto 1.81 K/mm3 (0.9-3.2); Lymphocytes Percent Auto 27.1 % (18.3-44.2); Mean Corpuscular HGB Conc 31.9 g/dl (32-36); Mean Corpuscular Hemoglobin 31.4 pg (26-34); Mean Corpuscular Volume 98.6 fl (80-100); Mean Platelet Volume 10.2 fl (7.4-10.4); Monocytes Absolute Auto 0.9 K/mm3 (0.1-0.6); Monocytes Percent Auto 12.9 % (2.6-8.5); Neutrophils Absolute Auto 3.3 K/mm3 (1.3-6.7); Neutrophils Percent Auto 49.6 % (45.5-73.1); Platelet Count Result 266 k/mm3 (150-375); Red Blood Count 4.17 M/mm3 (4.6-6.20); Red Cell Distribution Width 14.8 % (11.5-14.5); White Blood Count 6.7 K/mm3 (4.5-10.0)
[2023-07-26 06:17] LABS: Alanine Aminotransferase 28 U/L (6-50); Albumin Level 3.6 g/dL (3.5-5.1); Alkaline Phosphatase 169 U/L (38-126); Anion Gap 2 mmol/L (8-16); Aspartate Amino Transferase 31 U/L (17-59); Bilirubin,Total 0.8 mg/dL (0.2-1.3); Blood Urea Nitrogen 16 mg/dL (9-20); Carbon Dioxide 37 mmol/L (22-30); Chloride 98 mmol/L (98-107); Estimated CRCL calculation 117 ml/min; Estimated Glomerular Filt Rate > 60; Glucose 97 mg/dL (65-110); Magnesium 1.9 mg/dL (1.6-2.3); Phosphorus 4.3 mg/dL (2.5-4.5); Potassium 4.3 mmol/L (3.4-5.0); Sodium 137 mmol/L (137-145)
--- NOTE | 2023-07-26 08:18 | PM.IMPN ---
Progress Note: A&P Assessment and Plan (1) Impaired mobility and ADLs: Code(s): Z74.09 - Other reduced mobility; Z78.9 - Other specified health status Status: Acute Assessment and Plan: Currently lives at home with his . Safety concern due to multiple falls due to joint pain and weakness from attributed to his RA and OA. He is unable to move around his home safely and complete ADLs without assistance. -PT to eval and treat -OT to eval and treat -Care coordination consulted in ED and has touched base with pt/family (2) Recurrent falls: Code(s): R29.6 - Repeated falls Status: Acute Assessment and Plan: See plan for impaired ADLS -fall precautions in place -XR right hip and R knee pain: XR right knee, IMPRESSION: Right knee joint effusion Status post right total knee arthroplasty? XR right femur, IMPRESSION: Limited detail of proximal right femur due to body habitus Severe right hip osteoarthritis Status post right total knee arthroplasty? CT R Knee IMPRESSION: No acute osseous finding in the right knee. No CT evidence of hardware-related complication. -activity as tolerated with PT/OT. -Currently recommending acute rehab. (3) Scrotal swelling: Code(s): N50.89 - Other specified disorders of the male genital organs Status: Acute Assessment and Plan: Unknown onset. +Tenderness and erythema. Testicle on R significantly more swollen than L. Causing difficulty with urination. -UA: unremarkable -continue home oxybutynin -Scrotal US; left testis normal, right testis and epididymidis is not visualized. -Add on CT abdomen and pelvis to further investigate testicular swelling. IMPRESSION: Large uncomplicated bilateral fat-containing inguinal hernias which may account for the described testicular swelling. Scrotal wall thickening may be secondary to cellulitis or edema, correlate clinically. Fecal impaction. -Tylenol PRN for discomfort (4) Lower extremity edema: Code(s): R60.0 - Localized edema Status: Acute Assessment and Plan: Chronic discoloration of LE, swelling and blistering. Present for over 1 year, no treatment or imaging of LE completed prior per patient's verbal history. Attempts to wear compression stockings. -Chronic venous insufficiency with lymphedema. -Obtain venous Doppler for DVT rule out IMPRESSION: Patent bilateral lower extremity veins. No evidence of deep venous thrombosis. -Today swelling is trace to 1+. Will give a 1 x dose of lasix, recommend elevating legs when up in chair, apply DOMINIQUE wraps to help with venous return. -ROBERT, mildly decreased right TBI, normal left TBI, and normal ROBERT's, consistent with arterial occlusive disease. Plan Chronic Conditions -LEW: Home BiPAP/CPAP continued. -RA: hydroxychloroquine, methotrexate, and folic acid continued. -Supplements: continue home vitamin B, zinc, and vitamin D. Awaiting acceptance from acute rehab. Diet: Heart Healthy Diet DVT Prophylaxis: Lovenox 40 Code Status: Full Code, (Mindi Nolasco) to be surrogate decision maker Analgesia:Tylenol Glycemic control: N/A, blood glucose on BMP 98, no hx Bowel regimen: Last BM Lines: PIV Antibiotics: N/A Subjective Date/time seen: 07/26/23 08:18 Interval history: HPI obtained from chart, 67 y/o M with PMH of rheumatoid arthritis, Lupus, LEW, chronic venous insufficiency with lymphedema and morbid obesity presents here due to multiple falls and reduction in mobility. Patient reports multiple falls in the last week, mechanical in nature with most recent being today.? Patient was utilizing a ride service to attend an appointment when he fell attempting to get out of his seat with a multi-person assist to exit the van.? He became wedged against seat and EMS was called for lift assist.? Due to event, increasingly concerned about patient's safety at home.? Currently trying to coordinate
[2023-07-26] MEDS: ZINC SULFATE 220 MG CAPSULE PO (09:19)
[2023-07-26] MEDS: VITAMIN B COMPLEX CAPSULE 1 CAP PO (09:20)
[2023-07-26] MEDS: FOLIC ACID 1 MG TABLET PO (09:20)
[2023-07-26] MEDS: ENOXAPARIN 40 MG/0.4 ML SYRINGE SUB-Q (09:20)
[2023-07-26] MEDS: oxyBUTYnin CHLORIDE XL 5 MG TAB.ER.24 10 MG PO (09:20)
[2023-07-26] MEDS: HYDROXYCHLOROQUINE SULFATE 200 MG TABLET PO ×2 (09:20→16:26)
[2023-07-26] MEDS: polyethylene glycoL 3350 17 GM POWD.PACK PO (09:21)
[2023-07-26] MEDS: BISACODYL 10 MG SUPPOSITORY RECTAL (11:10)
--- NOTE | 2023-07-26 12:41 | PM.DS ---
DS: Admitting Diagnosis Discharge Date 07/26/23 Admitting Diagnosis Falls DS: Discharge Diagnosis Discharge Diagnosis (1) Impaired mobility and ADLs: Code(s): Z74.09 - Other reduced mobility; Z78.9 - Other specified health status Status: Acute Assessment and Plan: Currently lives at home with his . Safety concern due to multiple falls due to joint pain and weakness from attributed to his RA and OA. He is unable to move around his home safely and complete ADLs without assistance. -PT to eval and treat -OT to eval and treat -Care coordination consulted in ED and has touched base with pt/family (2) Recurrent falls: Code(s): R29.6 - Repeated falls Status: Acute Assessment and Plan: See plan for impaired ADLS -fall precautions in place -XR right hip and R knee pain: XR right knee, IMPRESSION: Right knee joint effusion Status post right total knee arthroplasty? XR right femur, IMPRESSION: Limited detail of proximal right femur due to body habitus Severe right hip osteoarthritis Status post right total knee arthroplasty? CT R Knee IMPRESSION: No acute osseous finding in the right knee. No CT evidence of hardware-related complication. -activity as tolerated with PT/OT. -Currently recommending acute rehab. (3) Scrotal swelling: Code(s): N50.89 - Other specified disorders of the male genital organs Status: Acute Assessment and Plan: Unknown onset. +Tenderness and erythema. Testicle on R significantly more swollen than L. Causing difficulty with urination. -UA: unremarkable -continue home oxybutynin -Scrotal US; left testis normal, right testis and epididymidis is not visualized. -Add on CT abdomen and pelvis to further investigate testicular swelling. IMPRESSION: Large uncomplicated bilateral fat-containing inguinal hernias which may account for the described testicular swelling. Scrotal wall thickening may be secondary to cellulitis or edema, correlate clinically. Fecal impaction. -Tylenol PRN for discomfort (4) Lower extremity edema: Code(s): R60.0 - Localized edema Status: Acute Assessment and Plan: Chronic discoloration of LE, swelling and blistering. Present for over 1 year, no treatment or imaging of LE completed prior per patient's verbal history. Attempts to wear compression stockings. -Chronic venous insufficiency with lymphedema. -Obtain venous Doppler for DVT rule out IMPRESSION: Patent bilateral lower extremity veins. No evidence of deep venous thrombosis. -Today swelling is trace to 1+. Will give a 1 x dose of lasix, recommend elevating legs when up in chair, apply DOMINIQUE wraps to help with venous return. -ROBERT, mildly decreased right TBI, normal left TBI, and normal ROBERT's, consistent with arterial occlusive disease. Plan Chronic Conditions -LEW: Home BiPAP/CPAP continued. -RA: hydroxychloroquine, methotrexate, and folic acid continued. -Supplements: continue home vitamin B, zinc, and vitamin D. Awaiting acceptance from acute rehab. Diet: Heart Healthy Diet DVT Prophylaxis: Lovenox 40 Code Status: Full Code, (Mindi Nolasco) to be surrogate decision maker Analgesia:Tylenol Glycemic control: N/A, blood glucose on BMP 98, no hx Bowel regimen: Last BM Lines: PIV Antibiotics: N/A DS: Summary Hospital Course Hospital Course: HPI obtained from chart, 67 y/o M with PMH of rheumatoid arthritis, Lupus, LEW, chronic venous insufficiency with lymphedema and morbid obesity presents here due to multiple falls and reduction in mobility. Patient reports multiple falls in the last week, mechanical in nature with most recent being today.? Patient was utilizing a ride service to attend an appointment when he fell attempting to get out of his seat with a multi-person assist to exit the van.? He became wedged against seat and EMS was called for lift assist.? Due to event, increasingly concerne
[2023-07-26 14:00] VITALS: BP 104/65; PULSE 71; RESP 18; TEMP 36.7; O2SAT 95
== END 2023-07-26 16:55 | DRG 556 ==
LOC: ANHED 18:55 → ANH3MEDSUR 20:20
PROVIDERS: Emergency Medicine; Admitting Provider Student in an Organized Health Care Education/Training Program; Emergency Provider Student in an Organized Health Care Education/Training Program; PCP Family Medicine; Visit Provider Nurse Practitioner Acute Care
DX: M62.81 Muscle weakness (generalized) (principal); Z68.43 Body mass index [BMI] 50.0-59.9, adult; M16.11 Unilateral primary osteoarthritis, right hip; I87.2 Venous insufficiency (chronic) (peripheral); M06.9 Rheumatoid arthritis, unspecified; E66.01 Morbid (severe) obesity due to excess calories; I89.0 Lymphedema, not elsewhere classified; N32.81 Overactive bladder; M32.9 Systemic lupus erythematosus, unspecified; R29.6 Repeated falls; G47.33 Obstructive sleep apnea (adult) (pediatric); Z96.651 Presence of right artificial knee joint; Z87.891 Personal history of nicotine dependence
CPT/HCPCS: 36415; 71045; 73552; 73562; 73700; 74176; 76870; 80053; 80061; 81003; 82306; 82607; 83036; 83735; 84100; 84153; 84443; 85025; 93005; 93922; 93970; 93976; 94002; 94003; 97163; 97165; 99285; A9270; G0103; J1650; J1940

== ENCOUNTER 2023-10-28 11:09 | Outpatient (CLI) | payer MEDICARE, OTHER, SELFPAY ==
[2023-10-28 12:41] LABS: Basophils Absolute Auto 0.1 K/mm3 (0.0-0.1); Basophils Percent Auto 0.7 % (0.2-1.2); Eosinophils Absolute Auto 0.4 K/mm3 (0-0.3); Eosinophils Percent Auto 3.5 % (0-4.4); Hematocrit 41.5 % (42.0-52.0); Hemoglobin 13.1 g/dL (14.0-18.0); Immature Granulocyte Absolute 0.04 K/mm3 (0.00-0.031); Immature Granulocyte Percent A 0.4 % (0-0.5); Lymphocytes Absolute Auto 1.75 K/mm3 (0.9-3.2); Lymphocytes Percent Auto 16.4 % (18.3-44.2); Mean Corpuscular HGB Conc 31.6 g/dl (32-36); Mean Corpuscular Hemoglobin 30.1 pg (26-34); Mean Corpuscular Volume 95.4 fl (80-100); Mean Platelet Volume 10.5 fl (7.4-10.4); Monocytes Absolute Auto 0.9 K/mm3 (0.1-0.6); Monocytes Percent Auto 8.7 % (2.6-8.5); Neutrophils Absolute Auto 7.5 K/mm3 (1.3-6.7); Neutrophils Percent Auto 70.3 % (45.5-73.1); Platelet Count Result 322 k/mm3 (150-375); Red Blood Count 4.35 M/mm3 (4.6-6.20); Red Cell Distribution Width 15.8 % (11.5-14.5); White Blood Count 10.7 K/mm3 (4.5-10.0)
[2023-10-28 12:51] LABS: Iron 129 ug/dL (49-181)
[2023-10-28 12:57] LABS: Alanine Aminotransferase 47 U/L (6-50); Albumin Level 3.8 g/dL (3.5-5.1); Alkaline Phosphatase 173 U/L (38-126); Anion Gap 6 mmol/L (8-16); Aspartate Amino Transferase 58 U/L (17-59); Bilirubin,Total 0.8 mg/dL (0.2-1.3); Blood Urea Nitrogen 18 mg/dL (9-20); Calcium 9.6 mg/dL (8.4-10.2); Carbon Dioxide 30 mmol/L (22-30); Chloride 104 mmol/L (98-107); Estimated Glomerular Filt Rate > 60; Glucose 104 mg/dL (65-110); Potassium 3.8 mmol/L (3.4-5.0); Sodium 140 mmol/L (137-145)
[2023-10-28 13:11] LABS: Percent Iron Saturation 56 % (20-50)
[2023-10-28 13:12] LABS: Hemoglobin A1C 5.7 % (<5.7)
[2023-10-28 14:00] LABS: Folic Acid > 20.0 ng/mL (2.76->20)
== END 2023-10-28 11:10 | disposition home or self-care (01) ==
PROVIDERS: PCP Family Medicine; Visit Provider Family Medicine
DX: R73.9 Hyperglycemia, unspecified (principal); Z79.899 Other long term (current) drug therapy; M06.9 Rheumatoid arthritis, unspecified; D64.9 Anemia, unspecified; Z51.81 Encounter for therapeutic drug level monitoring
CPT/HCPCS: 36415; 80053; 82607; 82728; 82746; 83036; 83540; 83550; 85025

== ENCOUNTER 2024-03-17 08:47 | Outpatient (CLI) | payer MEDICARE, OTHER, SELFPAY ==
--- NOTE | 2024-03-29 16:04 | WPDSLEEPSTUD ---
Sleep Study Date of Study: 03/17/24 Ordering Provider: Rizwan Castillo APRN Interpreting Physician: Lisy Allison DO Sleep Study Type: Split Polysomnogram Height: 1.88 m Weight: 176.901 kg Body Mass Index: 50.1 Neck Circumference (inches): 19 [place]: 5 Reason for Sleep Study Split night PSG 02/10/03 - severe sleep apnea, RDI 43 events/hr. Titrated to BiPAP 16/10 w/ 3L O2 bleed-in. Compliance data shows 100% use with average use of 10.4 hours per night. Residual AHI of 1.0. Eligible for a new machine. Sleep History The patient is a 68-year-old male with dyslipidemia, rheumatoid arthritis, chronic venous insufficiency of bilateral lower extremities, lymphedema, chronic low back pain, dyslipidemia, peripheral arterial disease, systemic lupus and LEW on BPAP with supplemental oxygen that had a sleep study ordered by the pulmonary group so the patient could get new PAP supplies. The patient denies awakening from sleep short of breath. He denies awakening at night with heartburn, belching or cough. He occasionally snores and is occasionally loud enough that others complain. He denies having trouble sleeping when he has a cold. He denies waking up gasping for air throughout the night. He denies having breathing problems at night observed by himself or others. He denies sweating excessively at night. He denies having heart palpitations or irregular heartbeats during the night. He rarely falls asleep during the day and never while driving. He denies sleep paralysis, cataplexy and hypnagogic / hypnopompic hallucinations. He denies having trouble at school or work due to sleepiness. He denies feeling afraid of going to sleep. He denies having nightmares. He rarely remembers his dreams. He occasionally has thoughts racing through his mind. He rarely feels sad or depressed. He occasionally has anxiety. He denies having muscular tension. He rarely notices parts of his body jerk. He rarely kicks during the night. He denies having crawling and aching feelings in his legs and denies having leg pain during the night. He denies grinding his teeth during sleep and denies awakening with morning jaw pain. He is occasionally bothered by pain during the day but rarely awakened by pain during the night. He occasionally wakes up feeling stiff in the morning. He rarely wakes up with sore or achy muscles. He denies waking up with pain in the neck, spine and other joints. He goes to bed between 10 to 10:30 p.m. on both weekdays and weekends. It takes him 15 minutes to fall asleep. He wakes up twice throughout the night to urinate and will than watch television until he is able to fall asleep within 15-30 minutes. He wakes up between 7-8 a.m. on both weekdays and weekends. He typically gets 8-9 hours of sleep per night. He does not stay in bed after waking up in the morning. He currently lives with his . He denies consuming any caffeinated beverages within 2 hours of bedtime. He denies engaging in physical exercise before bedtime. He will watch television before falling asleep. He denies taking naps in afternoon or the evening. He quit smoking cigarettes in 2002. He will consume caffeinated beverages throughout the day. He denies alcohol and recreational drug use. [facility] Past Medical History Medical History Impaired mobility and ADLs Lymphedema of both lower extremities Obstructive sleep apnea syndrome Overactive bladder Pericardial effusion Peripheral arterial disease Rheumatoid arthritis Systemic lupus Vitamin D deficiency Surgical History Surgical History History of bilateral knee replacement History of splenectomy Family History Family History Other Family history of cardiovascular disease Social History Social History (Reviewed 03/29/24 @ 16:12
[2024-03-29 16:26] VITALS: BMI 50.1
== END 2024-03-18 07:17 | disposition home or self-care (01) ==
LOC: ANHCSM 08:48
PROVIDERS: PCP Family Medicine; Visit Provider Nurse Practitioner Family
DX: G47.33 Obstructive sleep apnea (adult) (pediatric) (principal)
CPT/HCPCS: 95811

== ENCOUNTER 2024-05-10 11:54 | Outpatient (CLI) | payer MEDICARE, OTHER, SELFPAY ==
--- NOTE | ~2024-05-10 | XR_ITS ---
AP and lateral views of the right hip Clinical history: Pain Findings: No acute fracture or dislocation is seen. There is severe right hip joint osteoarthritis, w ith marked joint space narrowing and [id number] appearance, as well as reactive sclerotic change.. Soft tissues are unremarkable. Impression: Severe right hip joint osteoarthritis. Reviewed, dictated and finalized at location . Impression: Severe right hip joint osteoarthritis.
[2024-05-10 12:58] LABS: Basophils Absolute Auto 0.1 K/mm3 (0.0-0.1); Basophils Percent Auto 1.4 % (0.2-1.2); Eosinophils Absolute Auto 0.3 K/mm3 (0-0.3); Eosinophils Percent Auto 3.9 % (0-4.4); Hemoglobin 13.3 g/dL (14.0-18.0); Immature Granulocyte Absolute 0.02 K/mm3 (0.00-0.031); Immature Granulocyte Percent A 0.3 % (0-0.5); Lymphocytes Absolute Auto 1.45 K/mm3 (0.9-3.2); Mean Corpuscular HGB Conc 32.4 g/dl (32-36); Mean Corpuscular Volume 98.6 fl (80-100); Mean Platelet Volume 10.2 fl (7.4-10.4); Monocytes Absolute Auto 0.8 K/mm3 (0.1-0.6); Monocytes Percent Auto 11.5 % (2.6-8.5); Neutrophils Percent Auto 60.9 % (45.5-73.1); Platelet Count Result 253 k/mm3 (150-375); Red Blood Count 4.16 M/mm3 (4.6-6.20); Red Cell Distribution Width 14.6 % (11.5-14.5); White Blood Count 6.6 K/mm3 (4.5-10.0)
[2024-05-10 14:02] LABS: Alanine Aminotransferase 25 U/L (6-50); Albumin Level 4.3 g/dL (3.5-5.1); Alkaline Phosphatase 190 U/L (38-126); Anion Gap 6 mmol/L (4-12); Aspartate Amino Transferase 31 U/L (17-59); Blood Urea Nitrogen 17 mg/dL (9-20); Calcium 9.5 mg/dL (8.4-10.2); Carbon Dioxide 30 mmol/L (22-30); Chloride 104 mmol/L (98-107); Estimated Glomerular Filt Rate > 60; Glucose 97 mg/dL (65-110); Potassium 4.4 mmol/L (3.4-5.0); Sodium 140 mmol/L (137-145)
== END 2024-05-10 11:55 | disposition home or self-care (01) ==
PROVIDERS: PCP Family Medicine; Visit Provider Internal Medicine Rheumatology
DX: M16.11 Unilateral primary osteoarthritis, right hip (principal); Z51.81 Encounter for therapeutic drug level monitoring
CPT/HCPCS: 36415; 73502; 80053; 82248; 85025